=== PATIENT | female | born 1955 | race Hispanic/Latino ===

== ENCOUNTER 2019-02-24 12:53 | Emergency (ER) | payer OTHER ==
[~2019-02-24] VITALS: Ht 154.9 cm; Wt 69.0 kg
== END 2019-02-24 14:01 | disposition home or self-care (01) ==
LOC: EDH 12:53
DX: I10 Essential (primary) hypertension (principal); K08.89 Other specified disorders of teeth and supporting structures; E78.5 Hyperlipidemia, unspecified; E11.9 Type 2 diabetes mellitus without complications

== ENCOUNTER → 2021-01-01 | Outpatient (CLI) | payer OTHER | END | disposition home or self-care (01) | LOC: OIH 16:56 | PROVIDERS: ATTEND Internal Medicine Cardiovascular Disease | DX: Z13.6 Encounter for screening for cardiovascular disorders (principal); I25.10 Atherosclerotic heart disease of native coronary artery without angina pectoris | CPT/HCPCS: 75571 ==

== ENCOUNTER → 2021-01-14 | Outpatient (CLI) | payer OTHER | END | disposition home or self-care (01) | LOC: SHCH 14:23 | PROVIDERS: ATTEND Internal Medicine Cardiovascular Disease | DX: R09.89 Other specified symptoms and signs involving the circulatory and respiratory systems (principal) | CPT/HCPCS: 93306; 93356; 93880 ==

== ENCOUNTER → 2021-04-24 | Outpatient (CLI) | payer OTHER | END | disposition home or self-care (01) | LOC: RAH 10:00 | PROVIDERS: ATTEND Internal Medicine | DX: M19.041 Primary osteoarthritis, right hand (principal); M19.042 Primary osteoarthritis, left hand ==

== ENCOUNTER → 2023-06-08 | Outpatient (CLI) | payer OTHER ==
[2023-06-08 12:06] LABS: BASOPHILS # (AUTO) 0.04 K/uL (0.00-0.20); BASOPHILS % (AUTO) 0.6 % (0.0-5.0); EOSINOPHILS # (AUTO) 0.13 K/uL (0.00-0.70); EOSINOPHILS % (AUTO) 1.8 % (0.0-8.0); HEMATOCRIT 39.9 % (36-48); IMMATURE GRANULOCYTE ABSOLUTE 0.01 K/uL (0-1); LYMPHOCYTES # (AUTO) 2.8 K/uL (1.0-4.8); LYMPHOCYTES % (AUTO) 40.1 % (21.0-51.0); MEAN CORPUSCULAR HEMOGLOBIN 28.9 pg (27.0-33.0); MEAN CORPUSCULAR HGB CONC 32.3 g/dL (32.0-36.0); MEAN CORPUSCULAR VOLUME 89.5 fL (79-99); MONOCYTES # (AUTO) 0.7 K/uL (0.1-1.0); MONOCYTES % (AUTO) 9.4 % (3.0-13.0); NEUTROPHILS # (AUTO) 3.4 K/uL (1.8-7.7); PLATELET COUNT (AUTO) 260 K/uL (130-400); RED BLOOD CELL COUNT(AUTO) 4.46 MIL/uL (4.00-5.50); RED CELL DISTRIBUTION WIDTH 12.4 % (11.0-15.5); WHITE BLOOD COUNT (AUTO) 7.1 K/uL (4.8-10.8)
[2023-06-08 12:08] LABS: HEMOGLOBIN A1C 7.4 % (4.0-6.0)
[2023-06-08 12:34] LABS: ALBUMIN 3.8 g/dL (3.5-5.0); BILIRUBIN,TOTAL 0.4 mg/dL (0.2-1.0); CREATININE 0.6 mg/dL (0.5-1.5); POTASSIUM 4.4 mmol/L (3.5-5.1); T4 (THYROXINE) 7.9 ug/dL (4.7-13.3); THYROID STIMULATING HORMONE 0.71 uIU/mL (0.36-3.74); TOTAL PROTEIN, SERUM 7.4 g/dL (6.0-8.3)
== END | disposition home or self-care (01) ==
LOC: LAB 10:18
PROVIDERS: ATTEND Internal Medicine Cardiovascular Disease
DX: R09.89 Other specified symptoms and signs involving the circulatory and respiratory systems (principal); R06.00 Dyspnea, unspecified; I10 Essential (primary) hypertension; E78.5 Hyperlipidemia, unspecified; E11.9 Type 2 diabetes mellitus without complications; Z79.84 Long term (current) use of oral hypoglycemic drugs; Z79.899 Other long term (current) drug therapy
CPT/HCPCS: 36415; 80053; 80061; 83036; 83880; 84436; 84443; 84479; 85025

== ENCOUNTER → 2023-06-30 | Outpatient (CLI) | payer OTHER | END | disposition home or self-care (01) | LOC: RAH 13:25 | PROVIDERS: ATTEND Internal Medicine Cardiovascular Disease | DX: Z13.6 Encounter for screening for cardiovascular disorders (principal); R93.1 Abnormal findings on diagnostic imaging of heart and coronary circulation | CPT/HCPCS: 75571 ==

== ENCOUNTER → 2023-07-06 | Outpatient (CLI) | payer OTHER | END | disposition home or self-care (01) | LOC: SHCH 15:00 | PROVIDERS: ATTEND Internal Medicine Cardiovascular Disease | DX: I25.119 Atherosclerotic heart disease of native coronary artery with unspecified angina pectoris (principal); R06.00 Dyspnea, unspecified | CPT/HCPCS: 93306 ==

== ENCOUNTER 2023-12-23 08:32 | Inpatient (IN) | payer MEDICARE, OTHER ==
[~2023-12-23] VITALS: Ht 154.9 cm; Wt 68.1 kg
[2023-12-23 08:55] LABS: BASOPHILS # (AUTO) 0.04 K/uL (0.00-0.20); BASOPHILS % (AUTO) 0.7 % (0.0-5.0); EOSINOPHILS # (AUTO) 0.11 K/uL (0.00-0.70); EOSINOPHILS % (AUTO) 1.8 % (0.0-8.0); HEMATOCRIT 38.3 % (36-48); IMMATURE GRANULOCYTE ABSOLUTE 0.01 K/uL (0-1); LYMPHOCYTES % (AUTO) 50.3 % (21.0-51.0); MEAN CORPUSCULAR HEMOGLOBIN 29.2 pg (27.0-33.0); MEAN CORPUSCULAR HGB CONC 33.2 g/dL (32.0-36.0); MONOCYTES # (AUTO) 0.5 K/uL (0.1-1.0); MONOCYTES % (AUTO) 8.5 % (3.0-13.0); NEUTROPHILS # (AUTO) 2.3 K/uL (1.8-7.7); NEUTROPHILS % (AUTO) 38.5 % (40.0-77.0); PLATELET COUNT (AUTO) 227 K/uL (130-400); RED BLOOD CELL COUNT(AUTO) 4.35 MIL/uL (4.00-5.50)
[2023-12-23 09:00] LABS: CREATININE 0.7 mg/dL (0.5-1.5)
[2023-12-23 09:01] LABS: INR <= 0.93 (0.85-1.15); PROTHROMBIN TIME 10.4 SEC (9.6-11.6)
[2023-12-23 09:02] LABS: PARTIAL THROMBOPLASTIN TIME 24.3 SEC (26.3-35.5)
[2023-12-23 09:11] LABS: ALBUMIN 3.7 g/dL (3.5-5.0); BILIRUBIN,TOTAL 0.3 mg/dL (0.2-1.0); TOTAL PROTEIN, SERUM 7.8 g/dL (6.0-8.3)
[2023-12-23] MEDS: TETANUS/DIPHTHERIA TOXOID [ADULT] 0.5 ML VIAL IM ONE (10:08)
[2023-12-23] MEDS: ONDANSETRON 4MG INJ IVP ONE (10:09)
[2023-12-23] MEDS: MORPHINE 4 MG SYG IVP ONE (10:09)
[2023-12-23] MEDS: LACTATED RINGERS 1000ML 1,000 ML IV ONE (10:09)
[2023-12-23] MEDS ORDERED: FENO134C21 PO (13:08)
[2023-12-23] MEDS ORDERED: ROSU20TA73 PO (13:08)
[2023-12-23] MEDS ORDERED: OMEP-272 PO (13:08)
[2023-12-23] MEDS ORDERED: VITA1CAP PO (13:08)
[2023-12-23] MEDS ORDERED: ERGO500093 PO (13:08)
[2023-12-23] MEDS ORDERED: ASPI-1443 PO (13:08)
[2023-12-23] MEDS ORDERED: METF-444 PO (13:08)
[2023-12-23] MEDS ORDERED: ALEN70TA80 PO (13:08)
[2023-12-23] MEDS ORDERED: LISI20TA24 PO (13:08)
[2023-12-23] MEDS ORDERED: MORPHINE 4 MG SYG IVP PRN (14:00)
[2023-12-23] MEDS ORDERED: LACTULOSE 20 GM/30 ML UDCUP PO PRN (14:00)
[2023-12-23] MEDS ORDERED: DEXTROSE 50%-WATER 50 ML DISP.SYRIN IV PRN (14:00)
[2023-12-23] MEDS ORDERED: KCL 20 MEQ ERTAB PO PRN (14:00)
[2023-12-23] MEDS ORDERED: GLUCAGON 1MG KIT 1 MG ML IM PRN (14:00)
[2023-12-23] MEDS ORDERED: MAG/ALUM/SIMETH 30 ML UDCUP PO PRN (14:00)
[2023-12-23] MEDS ORDERED: ACETAMINOPHEN 325 MG TAB PO PRN (14:00)
[2023-12-23] MEDS ORDERED: MORPHINE 2 MG SYG IV PRN (14:00)
[2023-12-23] MEDS ORDERED: POTASSIUM CHLORIDE 10% ELIXIR 20 MEQ/15 ML UDCUP PO PRN (14:00)
[2023-12-23] MEDS ORDERED: POTASSIUM CHLORIDE 20MEQ/100ML 100 ML IV PRN ×2 (14:00)
[2023-12-23] MEDS ORDERED: DiphenhydrAMINE HCL 50 MG/ML VIAL IV PRN (14:00)
[2023-12-23] MEDS: AMOX/CLAV 875/125MG TAB PO ONE (15:15)
[2023-12-23] MEDS: 0.9%NACL 1000ML 1,000 ML IV SCH (15:28)
[2023-12-23] MEDS: INSULIN HUMULIN R 100 UNIT/ML 3ML SQ SCH (16:50)
[2023-12-23] MEDS: ACETAMINOPHEN WITH CODEINE 1 TAB TAB PO PRN (17:00)
[2023-12-23] MEDS: ATORVASTATIN 40 MG TABLET PO SCH (17:06)
[2023-12-23 17:30] VITALS: BP 144/78; PULSE 65; RESP 18
[2023-12-23 18:52] VITALS: O2SAT 95
[2023-12-23 20:00] VITALS: BP 142/70; PULSE 67; RESP 18
[2023-12-23 20:30] VITALS: O2SAT 98
[2023-12-23] MEDS: METFORMIN HCL 500 MG TABLET PO SCH (20:34)
[2023-12-24] VITALS (23 sets, daily range): BP systolic 108–154; BP diastolic 53–85; PULSE 58–84; RESP 12–18; O2SAT 96–97
[2023-12-24] MEDS: ONDANSETRON 4MG INJ IV PRN (04:17)
[2023-12-24] MEDS: MORPHINE 2 MG SYG IV PRN (04:17)
[2023-12-24 05:10] LABS: HEMATOCRIT 30.7 % (36-48); MEAN CORPUSCULAR HEMOGLOBIN 29.3 pg (27.0-33.0); MEAN CORPUSCULAR HGB CONC 31.9 g/dL (32.0-36.0); MEAN CORPUSCULAR VOLUME 91.9 fL (79-99); RED BLOOD CELL COUNT(AUTO) 3.34 MIL/uL (4.00-5.50); RED CELL DISTRIBUTION WIDTH 13.2 % (11.0-15.5); WHITE BLOOD COUNT (AUTO) 7.4 K/uL (4.8-10.8)
[2023-12-24 05:24] LABS: CREATININE 0.6 mg/dL (0.5-1.5); POTASSIUM 3.6 mmol/L (3.5-5.1)
[2023-12-24] MEDS: PANTOPRAZOLE 40 MG TAB DR PO SCH (07:40)
[2023-12-24] MEDS: LISINOPRIL 20 MG TABLET PO SCH (08:09)
[2023-12-24] MEDS ORDERED: ROPIVACAINE 0.5% 5MG/ML 30ML ONE (09:11)
[2023-12-24] MEDS ORDERED: LIDOCAINE PF 100MG/5ML (2%) SYRINGE 5ML ONE (09:12)
[2023-12-24] MEDS ORDERED: ROCURONIUM BROMIDE 10MG/1ML 5ML VL ONE ×2 (09:13→10:24)
[2023-12-24] MEDS ORDERED: PROPOFOL 10 MG/ML 20ML VIAL IV ONE (09:13)
[2023-12-24] MEDS ORDERED: MIDAZOLAM HCL 1 MG/ML 2ML VIAL ONE (09:13)
[2023-12-24] MEDS ORDERED: FENTANYL CITRATE PF 50 MCG/1 ML 2ML VIAL ONE ×2 (09:13→11:54)
[2023-12-24] MEDS: CEFAZOLIN SODIUM 2 GM VIAL ONE (09:40)
[2023-12-24] MEDS ORDERED: DEXAMETHASONE SOD PHOSPHATE 10MG/ML 1ML VIAL ONE (09:55)
[2023-12-24] MEDS ORDERED: KETOROLAC 30MG VIAL (30MG/ML) ONE (09:55)
[2023-12-24] MEDS ORDERED: GLYCOPYRROLATE 0.2 MG/ML 5 ML VIAL ONE (09:55)
[2023-12-24] MEDS ORDERED: ONDANSETRON 4MG INJ ONE (09:55)
[2023-12-24] MEDS ORDERED: NEOSTIGMINE METHYLSULFATE 1MG/ML IV ONE (09:55)
[2023-12-24] MEDS ORDERED: CALCIUM CARB 500MG PO PRN (12:30)
[2023-12-24] MEDS ORDERED: POTASSIUM CHLORIDE 10% ELIXIR 20 MEQ/15 ML UDCUP PO PRN (12:30)
[2023-12-24] MEDS ORDERED: CEFAZOLIN SODIUM 2 GM VIAL IVPB SCH (12:30)
[2023-12-24] MEDS ORDERED: HYDROCODONE/ACETAMINOPHEN 5/325 MG TAB PO PRN (12:30)
[2023-12-24] MEDS ORDERED: POTASSIUM CHLORIDE 20MEQ/100ML 100 ML IV PRN (12:30)
[2023-12-24] MEDS ORDERED: FERROUS FUMARATE 324 MG TABLET PO PRN (12:30)
[2023-12-24] MEDS: 0.9%NACL 1000ML 1,000 ML IV SCH (13:35)
[2023-12-24] MEDS: CEFAZOLIN SODIUM 2 GM VIAL IVPB SCH (17:06)
[2023-12-24] MEDS: KETOROLAC 15MG/ML VIAL (15MG/ML) IV PRN (17:52)
[2023-12-24] MEDS: KCL 20 MEQ ERTAB PO PRN (17:53)
[2023-12-25] VITALS (7 sets, daily range): BP systolic 134–152; BP diastolic 65–75; PULSE 67–86; RESP 19–22; O2SAT 96–98
[2023-12-25 06:20] LABS: HEMATOCRIT 27.2 % (36-48); MEAN CORPUSCULAR HEMOGLOBIN 29.2 pg (27.0-33.0); MEAN CORPUSCULAR HGB CONC 32.4 g/dL (32.0-36.0); MEAN CORPUSCULAR VOLUME 90.4 fL (79-99); RED BLOOD CELL COUNT(AUTO) 3.01 MIL/uL (4.00-5.50); RED CELL DISTRIBUTION WIDTH 13.2 % (11.0-15.5); WHITE BLOOD COUNT (AUTO) 9.9 K/uL (4.8-10.8)
[2023-12-25 06:29] LABS: INR <= 0.93 (0.85-1.15); PROTHROMBIN TIME 10.8 SEC (9.6-11.6)
[2023-12-25 06:44] LABS: CREATININE 0.6 mg/dL (0.5-1.5); POTASSIUM 3.8 mmol/L (3.5-5.1)
[2023-12-25] MEDS: POLYETHYLENE GLYCOL 3350 17 GM POWD.PACK PO SCH (08:10)
[2023-12-25] MEDS: PSYLLIUM SEED 1 EACH PACKET PO SCH (12:00)
[2023-12-25] MEDS: ACETAMINOPHEN WITH CODEINE 1 TAB TAB PO PRN (12:36)
[2023-12-26] VITALS (8 sets, daily range): BP systolic 128–168; BP diastolic 58–80; PULSE 74–88; RESP 17–19; O2SAT 94–97
[2023-12-26 05:51] LABS: HEMATOCRIT 26.2 % (36-48); MEAN CORPUSCULAR HEMOGLOBIN 29.2 pg (27.0-33.0); MEAN CORPUSCULAR HGB CONC 32.1 g/dL (32.0-36.0); RED BLOOD CELL COUNT(AUTO) 2.88 MIL/uL (4.00-5.50); RED CELL DISTRIBUTION WIDTH 13.4 % (11.0-15.5); WHITE BLOOD COUNT (AUTO) 9.5 K/uL (4.8-10.8)
[2023-12-26 06:01] LABS: INR <= 0.93 (0.85-1.15); PROTHROMBIN TIME 10.3 SEC (9.6-11.6)
[2023-12-26 06:06] LABS: CREATININE 0.6 mg/dL (0.5-1.5); POTASSIUM 3.8 mmol/L (3.5-5.1)
[2023-12-26] MEDS: ACETAMINOPHEN 325 MG TAB PO PRN (08:23)
[2023-12-26] MEDS ORDERED: LACTULOSE 20 GM/30 ML UDCUP PO PRN (09:30)
[2023-12-26] MEDS ORDERED: APIX5TAB PO (09:34)
[2023-12-26] MEDS: LACTULOSE 20 GM/30 ML UDCUP PO ONE (11:38)
[2023-12-26] MEDS ORDERED: BISACODYL 5 MG TABLET.DR PO PRN (12:30)
[2023-12-26] MEDS ORDERED: HYDRALAZINE HCL 10 MG TABLET PO PRN (18:30)
[2023-12-26] MEDS: APIXABAN 5 MG TABLET PO SCH (20:19)
[2023-12-27 04:00] VITALS: BP 139/78; PULSE 82; RESP 17
[2023-12-27 05:56] LABS: MEAN CORPUSCULAR HGB CONC 32.4 g/dL (32.0-36.0); MEAN CORPUSCULAR VOLUME 89.6 fL (79-99); RED BLOOD CELL COUNT(AUTO) 2.79 MIL/uL (4.00-5.50); RED CELL DISTRIBUTION WIDTH 13.2 % (11.0-15.5); WHITE BLOOD COUNT (AUTO) 6.8 K/uL (4.8-10.8)
[2023-12-27 06:06] LABS: CREATININE 0.5 mg/dL (0.5-1.5); INR 0.94 (0.85-1.15); POTASSIUM 3.1 mmol/L (3.5-5.1); PROTHROMBIN TIME 10.9 SEC (9.6-11.6)
[2023-12-27 07:43] VITALS: BP 146/78; PULSE 77; RESP 18
[2023-12-27 08:18] VITALS: O2SAT 96
[2023-12-27 11:34] VITALS: BP 159/92; PULSE 79; RESP 18
[2023-12-27] MEDS ORDERED: BISACODYL 10 MG SUPP.RECT RC PRN (12:30)
[2023-12-27 15:33] VITALS: BP 156/92; PULSE 89; RESP 18
== END 2023-12-27 16:00 | DRG 493 ==
LOC: EDH 08:32 → EDHIP 13:54 → INTOOBSV 13:54 → OBSVTOIN 13:54 → 3AH 17:08
PROVIDERS: ADMIT Internal Medicine; ATTEND Internal Medicine
PROC: 0QSK04Z Reposition Left Fibula with Internal Fixation Device, Open Approach (ICD-10-PCS; 2023-12-24)
PROC: 0QSH04Z Reposition Left Tibia with Internal Fixation Device, Open Approach (ICD-10-PCS; principal; 2023-12-24 09:17)
DX: S82.852A Displaced trimalleolar fracture of left lower leg, initial encounter for closed fracture (principal); D68.69 Other thrombophilia; M81.0 Age-related osteoporosis without current pathological fracture; S01.01XA Laceration without foreign body of scalp, initial encounter; E11.65 Type 2 diabetes mellitus with hyperglycemia; E78.00 Pure hypercholesterolemia, unspecified; I10 Essential (primary) hypertension; K21.9 Gastro-esophageal reflux disease without esophagitis; W18.39XA Other fall on same level, initial encounter; Y92.89 Other specified places as the place of occurrence of the external cause; Y99.8 Other external cause status; Y93.K1 Activity, walking an animal; Z79.01 Long term (current) use of anticoagulants; Z79.84 Long term (current) use of oral hypoglycemic drugs; Z82.49 Family history of ischemic heart disease and other diseases of the circulatory system; Z87.820 Personal history of traumatic brain injury; Z79.899 Other long term (current) drug therapy
CPT/HCPCS: 36415; 70450; 71045; 72125; 73590; 73610; 80048; 80053; 82550; 82948; 85025; 85027; 85610; 85730; 86850; 86900; 86901; 90714; 93005; G0378; J1100; J1815; J1885; J2001; J2250; J2270; J2405; J2704; J2710; J2795; J3010; J3490; J7030; J7120; A4222; A4223; A4600; J0690